=== PATIENT | male | born 1980 | race Caucasian/White ===

== ENCOUNTER 2017-11-14 19:29 | Emergency (ER) | payer OTHER ==
[2017-11-14 19:38] VITALS: BP 120/72
[2017-11-14] MEDS ORDERED: NAPROXEN 250 MG TABLET PO ONE (20:16)
[2017-11-14] MEDS ORDERED: HYDROCODONE/ACETAMINOPHEN 5-325 MG TABLET PO ONE (20:16)
--- NOTE | 2017-11-14 20:20 | ER Document Report ---
ED Burn/Smoke/Toxic Fumes - General Chief Complaint: Burn Stated Complaint: RIGHT ARM BURN Time Seen by Provider: 11/14/17 20:16 Notes: The patient is a 37-year-old male who presents with 4 days of a right forearm burn from hot grease at work. He was having increased pain earlier today and came to the ER. Patient was using silverdene cream from prior burn and Neosporin over the past few days. His tetanus is up-to-date. He denies numbness, tingling, difficulty bending his elbow or wrist, fevers or discharge from the burn. TRAVEL OUTSIDE OF THE [place] IN LAST 30 DAYS: No - Related Data Allergies/Adverse Reactions: No Known Allergies Allergy (Unverified 11/14/17 19:34) Past Medical History - General Information source: Patient - Social History Smoking Status: Unknown if Ever Smoked Family History: Reviewed & Not Pertinent Review of Systems - Review of Systems Notes: REVIEW OF SYSTEMS: CONSTITUTIONAL: -fevers, -chills EENT: -eye pain, -difficulty swallowing, -nasal congestion CARDIOVASCULAR: -chest pain, -syncope. RESPIRATORY: -cough, -SOB GASTROINTESTINAL: -abdominal pain, -nausea, -vomiting, -diarrhea GENITOURINARY: -dysuria, -hematuria MUSCULOSKELETAL: -back pain, -neck pain SKIN: +right forearm burn HEMATOLOGIC: -easy bruising or bleeding. LYMPHATIC: -swollen, enlarged glands. NEUROLOGICAL: -altered mental status or loss of consciousness, -headache, - neurologic symptoms PSYCHIATRIC: -anxiety, -depression. ALL OTHER SYSTEMS REVIEWED AND NEGATIVE. Physical Exam - Vital signs Vitals: Temp Pulse Resp BP Pulse Ox 98.0 F 75 18 120/72 98 11/14/17 19:37 11/14/17 19:37 11/14/17 19:37 11/14/17 19:37 11/14/17 19:37 - Notes Notes: PHYSICAL EXAMINATION: GENERAL: Well-appearing, well-nourished and in no acute distress. HEAD: Atraumatic, normocephalic. EYES: Pupils equal round and reactive to light, extraocular movements intact, sclera anicteric, conjunctiva are normal. ENT: nares patent, oropharynx clear without exudates. Moist mucous membranes. NECK: Normal range of motion, supple without lymphadenopathy LUNGS: Breath sounds clear to auscultation bilaterally and equal. No wheezes rales or rhonchi. HEART: Regular rate and rhythm without murmurs ABDOMEN: Soft, nontender, normoactive bowel sounds. No guarding, no rebound. No masses appreciated. EXTREMITIES: Normal range of motion, no pitting or edema. No cyanosis. Strong distal pulses. NEUROLOGICAL: Cranial nerves grossly intact. Normal speech, normal gait. Normal sensory and motor exams. PSYCH: Normal mood, normal affect. SKIN: Partial thickness burn over right anterior forearm. Not circumferential. Course - Re-evaluation Re-evalutation: Patient with a second-degree burn over his right forearm. Burn is not circumferential he has full range of motion of his elbow and wrist. Strong distal pulses. Burn does not appear infected and his tetanus is up-to-date. Patient does not require emergent transfer to the burn center at this time. Instructed him about continuing silver, adding aloe with lidocaine and pain control with anti-inflammatories and [place] for severe pain. He understands given very strict return precautions - Vital Signs Vital signs: Temp Pulse Resp BP Pulse Ox 98.0 F 75 18 120/72 98 11/14/17 19:37 11/14/17 19:37 11/14/17 19:37 11/14/17 19:37 11/14/17 19:37 Discharge - Discharge Clinical Impression: Burn Condition: Stable Disposition: HOME, SELF-CARE Additional Instructions: Maxwell The seriousness of a burn is not always obvious at first. Delayed tissue damage and secondary infection may occur despite proper treatment. Proper care is very important. A burn that is third-degree may need skin grafting. Most maxwell, however, are simply protected with dressings until healed. Keep the burn clean. If the dressing gets wet, remove it and blot the wound dry, then apply a fresh dressing. Dressings should be changed at least once daily. Soaks to remove crusting are usually started in about two days. Maxwell in certain areas require stretching to prevent disabling tightness. Your doctor will advise you about this. For pain control, you may frequently apply a hand towel that has been dipped in water with ice cubes. Do not apply ice directly to the burned areas. If any signs of infection occur (swelling, redness, increasing tenderness, red streaks, tender lumps in the armpit or groin above the burn, or fever), contact the doctor immediately. Prescriptions: Hydrocodone/Acetaminophen [[place] 5-325 mg Tablet] 1 tab PO Q6H PRN #10 tablet PRN Reason: Lidocaine/Aloe Vera [Aloe Vera-Lidocaine Gel] 227 gm TP Q8H PRN #1 gel..gm. PRN Reason: Naproxen [Naprosyn 250 mg Tablet] 500 mg PO Q12H PRN #14 tablet PRN Reason: Silver Sulfadiazine [Silvadene] 1,000 gm TP Q12H #1 cream..g. Referrals: LEOPOLDO SILVA MD [ACTIVE STAFF] - Follow up as needed
[2017-11-14] MEDS ORDERED: SILVER SULFADIAZINE 1% CREAM 25 GM TP ONE (20:27)
== END 2017-11-14 21:03 | disposition home or self-care (01) ==
LOC: ER 19:29
DX: T22.20XA Burn of second degree of shoulder and upper limb, except wrist and hand, unspecified site, initial encounter (principal); X10.2XXA Contact with fats and cooking oils, initial encounter; Y99.0 Civilian activity done for income or pay
CPT/HCPCS: 99283

== ENCOUNTER 2018-12-07 14:09 | Emergency (ER) | payer SELFPAY ==
[2018-12-07] MEDS ORDERED: METHOCARBAMOL 500 MG TABLET PO ONE (15:29)
[2018-12-07] MEDS ORDERED: KETOROLAC TROMETHAMINE 60 MG/2 ML SDV IM ONE (15:29)
[2018-12-07] MEDS ORDERED: LIDOCAINE 5% (700 MG) TRANSDERMAL ADH..PATCH TP ONE (15:30)
--- NOTE | 2018-12-07 15:34 | ER Document Report ---
ED Medical Screen (RME) - General Chief Complaint: Neck and Upper Back Pain Stated Complaint: HEAD PAIN Time Seen by Provider: 12/07/18 15:26 Mode of Arrival: Ambulatory Information source: Patient Notes: 38-year-old male presented to ED for complaint of continued pain to his head and neck and shoulders and back for the last 3 weeks. He states that 3 weeks ago he was coming from under the house and hit his head on something onto the house causing him to see stars and had a knot on his head for about a week and half. States for about a week and a half he had severe burning in his neck and back. States now he has severe neck pain back pain and it is difficult to swallow due to the pain in his neck and I consulted Dr. Ponce who recommended the CT of the head and neck at this time. He will also be treated with Toradol injection and Robaxin after his CTs he will get a Lidoderm patch. Patient is alert oriented respirations regular and unlabored speaking in full sentences no obvious neurological deficits noted at this time. Patient has full range of motion to his shoulders refuses to move his neck because it hurts. I have greeted and performed a rapid initial assessment of this patient. A comprehensive ED assessment and evaluation of the patient, analysis of test results and completion of medical decision making process will be conducted by an additional ED providers. TRAVEL OUTSIDE OF THE [place] IN LAST 30 DAYS: No - Related Data Allergies/Adverse Reactions: No Known Allergies Allergy (Unverified 11/14/17 19:34) Past Medical History - Social History Drug Abuse: Marijuana Renal/ Medical History: Denies: Hx Peritoneal Dialysis Physical Exam - Vital signs Vitals: Temp Pulse Resp BP Pulse Ox 97.4 F 66 16 121/53 L 98 12/07/18 15:00 12/07/18 15:00 12/07/18 15:00 12/07/18 15:00 12/07/18 15:00 Course - Vital Signs Vital signs: Temp Pulse Resp BP Pulse Ox 97.9 F 62 18 128/78 H 99 12/07/18 20:31 12/07/18 20:31 12/07/18 20:31 12/07/18 20:31 12/07/18 20:31 Doctor's Discharge - Discharge Clinical Impression: Closed head injury with concussion, Postconcussive syndrome, Neck pain Condition: Stable Disposition: HOME, SELF-CARE Instructions: Head Injury Precautions ([facility]), Neck Injury (Cervical Strain) ([facility]), Tension Headache ([facility]) Additional Instructions: Moist heat to the neck and the back of the head. Take medications as prescribed. Follow-up with your primary care physician this week. Return to the emergency department with worsening or new concerning symptoms. Prescriptions: Cyclobenzaprine HCl [Flexeril 10 mg Tablet] 10 mg PO TID PRN #15 tablet PRN Reason: For Pain Scale 4-5 Naproxen [Naprosyn 375 Mg Tablet] 375 mg PO BID #20 tablet
--- NOTE | 2018-12-07 17:03 | RADIOLOGY REPORT (SQ) ---
EXAM DESCRIPTION: CT HEAD WITHOUT COMPLETED DATE/TIME: 12/07/2018 4:46 pm REASON FOR STUDY: head injury continues symptom 3 weeks COMPARISON: None. TECHNIQUE: Axial images acquired through the brain without intravenous contrast. Images reviewed wi th bone, brain and subdural windows. Additional sagittal and coronal reconstructions were generated. Images stored on PACS. All CT scanners at this facility use dose modulation, iterative reconstruction, and/or weight based d osing when appropriate to reduce radiation dose to as low as reasonably achievable (ALARA). [facility]: Dose Right [facility]: CareDose [facility]: Dose Right [facility]: Teradose 4D [facility]: Smart [employer] RADIATION DOSE: CT Rad equipment meets quality standard of care and radiation dose reduction techniq ues were employed. CTDIvol: 53.2 mGy. DLP: 1044 mGy-cm. mGy. LIMITATIONS: None. FINDINGS: VENTRICLES: Normal size and contour. CEREBRUM: No masses. No hemorrhage. No midline shift. No evidence for acute infarction. Normal gra y/white matter differentiation. No areas of low density in the white matter. CEREBELLUM: No masses. No hemorrhage. No alteration of density. No evidence for acute infarction. EXTRAAXIAL SPACES: No fluid collections. No masses. ORBITS AND GLOBE: No intra- or extraconal masses. Normal contour of globe without masses. CALVARIUM: No fracture. PARANASAL SINUSES: No fluid or mucosal thickening. SOFT TISSUES: No mass or hematoma. OTHER: No other significant finding. IMPRESSION: NORMAL BRAIN CT WITHOUT CONTRAST. EVIDENCE OF ACUTE STROKE: NO. COMMENT: Quality ID # [id number]: Final reports with documentation of one or more dose reduction techniques (e.g., Automated exposure control, adjustment of the mA and/or kV according to patient size, use of iterative reconstruction technique) TECHNICAL DOCUMENTATION: JOB ID: [id number] [employer]- All Rights Reserved Reading location - IP/workstation name: [email or web address]
--- NOTE | 2018-12-07 17:05 | RADIOLOGY REPORT (SQ) ---
EXAM DESCRIPTION: CT CERVICAL SPINE WITHOUT COMPLETED DATE/TIME: 12/07/2018 4:46 pm REASON FOR STUDY: head injury continues symptom 3 weeks COMPARISON: None. TECHNIQUE: Axial images acquired through the cervical spine without intravenous contrast. Images re viewed with lung, soft tissue and bone windows. Reconstructed coronal and sagittal MPR images review ed. Images stored on PACS. All CT scanners at this facility use dose modulation, iterative reconstruction, and/or weight based d osing when appropriate to reduce radiation dose to as low as reasonably achievable (ALARA). [facility]: Dose Right [facility]: CareDose [facility]: Dose Right [facility]: Teradose 4D [facility]: Smart [employer] RADIATION DOSE: CT Rad equipment meets quality standard of care and radiation dose reduction techniq ues were employed. CTDIvol: 20.0 mGy. DLP: 429 mGy-cm. mGy. LIMITATIONS: None. FINDINGS: ALIGNMENT: Anatomic. MINERALIZATION: Normal. VERTEBRAL BODIES: No fractures or dislocation. DISCS: No significant disc disease. FACETS, LATERAL MASSES, POSTERIOR ELEMENTS: No fractures. No dislocation. No acute findings. HARDWARE: None in the spine. VISUALIZED RIBS: No fractures. LUNG APICES AND SOFT TISSUES: No significant or acute findings. OTHER: No other significant finding. IMPRESSION: NO ACUTE OR SIGNIFICANT FINDINGS IN THE CERVICAL SPINE. TECHNICAL DOCUMENTATION: JOB ID: [id number] Quality ID # [id number]: Final reports with documentation of one or more dose reduction techniques (e.g., Au tomated exposure control, adjustment of the mA and/or kV according to patient size, use of iterative reconstruction technique) 2010 [employer]- All Rights Reserved Reading location - IP/workstation name: [email or web address]
[2018-12-07] MEDS ORDERED: DIAZEPAM INJ 10 MG/2 ML DISP.SYRIN IM ONE (19:39)
--- NOTE | 2018-12-07 20:20 | ER Document Report ---
ED General - General Chief Complaint: Neck and Upper Back Pain Stated Complaint: HEAD PAIN Time Seen by Provider: 12/07/18 15:26 Mode of Arrival: Ambulatory TRAVEL OUTSIDE OF THE [place] IN LAST 30 DAYS: No - HPI Notes: Patient is a 38-year-old male who presents to the emergency department for evaluation of neck and head pain. About 3 weeks ago he was coming out from underneath his house. He had his head on a beam. He states he "saw stars." He was not knocked unconscious. He has had headaches since then. Over the last week or so he is developed increased neck pain. He describes it as sharp and cramping, rates it a 5 out of 5. Over the last 3 days it is nearly impossible for him to turn his head. He is able to flex it up and down. He denies any fevers or chills. No sore throat. No visual changes. Moving arms and legs without difficulty. - Related Data Allergies/Adverse Reactions: No Known Allergies Allergy (Unverified 11/14/17 19:34) Past Medical History - General Information source: Patient - Social History Smoking Status: Current Every Day Smoker Drug Abuse: Marijuana Family History: Reviewed & Not Pertinent, DM, Hypertension Patient has suicidal ideation: No Patient has homicidal ideation: No Renal/ Medical History: Denies: Hx Peritoneal Dialysis Review of Systems - Review of Systems Constitutional: No symptoms reported EENT: See HPI Cardiovascular: No symptoms reported Respiratory: No symptoms reported Gastrointestinal: No symptoms reported Genitourinary: No symptoms reported Musculoskeletal: See HPI Skin: No symptoms reported Neurological/Psychological: No symptoms reported Physical Exam - Vital signs Vitals: Temp Pulse Resp BP Pulse Ox 97.4 F 66 16 121/53 L 98 12/07/18 15:00 12/07/18 15:00 12/07/18 15:00 12/07/18 15:00 12/07/18 15:00 - Notes Notes: Vital signs reviewed, please refer to chart. Head is normocephalic, atraumatic. Pupils equal round, reactive to light. Mucosa is moist, pharynx is without erythema or exudate. Uvula is midline. Examination of the cervical spine yields no midline tenderness or step-off. He is holding his neck with decreased lordotic curve. He has significant tenderness palpation over the paraspinal musculature throughout the cervical spine, particularly at the base of the occiput on the right. He is also tender to palpation in bilateral sternocleidomastoid muscles. He does not exhibit any meningismus. Heart is regular rate and rhythm. Lungs are clear to auscultation bilaterally. Abdomen is soft, nontender, normoactive bowel sounds throughout. Extremities without cyanosis, clubbing. Posterior calves are nontender. Peripheral pulses are equal. Skin is warm and dry. Patient is awake, alert, oriented x3. Cranial nerves II through XII are grossly intact without focal neurological deficits. Strength is plus 5 out of 5 bilateral upper and lower extremities. Reflexes are symmetrical, sensation is intact. Gait is within normal limits. Course - Re-evaluation Re-evalutation: 12/07/18 20:18 Patient presents to the emergency department for evaluation. He was initially given Toradol, Robaxin, Lidoderm patch. Imaging is ordered through triage. Imaging failed to reveal any acute findings. Patient got minimal relief. My strong suspicion is that he is having headaches as a result of the head injury as well as tension headaches as a result of the neck spasm. I did go ahead and treat him with some IM Valium here. I will send him home with muscle relaxers and anti-inflammatories. He is encouraged to gently stretch the area as pain tolerates. Moist heat. Take medications as prescribed. He is to follow-up with primary care, return to the ED with worsening or new concerning symptoms of any sort. - Vital Signs Vital signs: Temp Pulse Resp BP Pulse Ox 97.4 F 66 16 121/53 L 98 12/07/18 15:00 12/07/18 15:00 12/07/18 15:00 12/07/18 15:00 12/07/18 15:00 - Diagnostic Test Radiology reviewed: Reports reviewed Radiology results interpreted by me: 12/07/18 20:[address] 12/07/18 15:29 IMPRESSION: NO ACUTE OR SIGNIFICANT FINDINGS IN THE CERVICAL SPINE. Head CT 12/07/18 15:29 IMPRESSION: NORMAL BRAIN CT WITHOUT CONTRAST. EVIDENCE OF ACUTE STROKE: NO. Discharge - Discharge Clinical Impression: Postconcussive syndrome, Neck pain Closed head injury with concussion Qualifiers: Encounter type: sequela Loss of consciousness presence/duration: without LOC Qualified Code(s): S06.0X0S - Concussion without loss of consciousness, sequela Condition: Stable Disposition: HOME, SELF-CARE Instructions: Head Injury Precautions ([facility]), Tension Headache ([facility]), Neck Injury (Cervical Strain) ([facility]) Additional Instructions: Moist heat to the neck and the back of the head. Take medications as prescribed. Follow-up with your primary care physician this week. Return to the emergency department with worsening or new concerning symptoms.
[2018-12-07 20:35] VITALS: BP 128/78
== END 2018-12-07 21:00 | disposition home or self-care (01) ==
LOC: ER 14:09
DX: F07.81 Postconcussional syndrome (principal); M54.2 Cervicalgia; M54.6 Pain in thoracic spine; R51 Headache; F17.200 Nicotine dependence, unspecified, uncomplicated
CPT/HCPCS: 99283; 96372; 70450; 72125; J3360; J1885